=== PATIENT | male | born 1960 | race Caucasian/White ===

== ENCOUNTER 2018-10-22 13:41 | Emergency (ER) | payer MEDICAID, OTHER ==
[~2018-10-22] VITALS: Ht 167.6 cm; Wt 88.0 kg
[~2018-10-22 13:41] MED LIST: QUET300T2
[2018-10-22 15:01] VITALS: BP 124/84
== END 2018-10-22 15:01 | disposition home or self-care (01) ==
LOC: ER 13:55
DX: L02.414 Cutaneous abscess of left upper limb (principal); F12.10 Cannabis abuse, uncomplicated; F14.10 Cocaine abuse, uncomplicated; F15.10 Other stimulant abuse, uncomplicated; F17.200 Nicotine dependence, unspecified, uncomplicated; Z98.890 Other specified postprocedural states
CPT/HCPCS: 99283